=== PATIENT | male | born 1960 | race Caucasian/White ===

== ENCOUNTER 2024-06-27 07:28 | Day surgery (SDC) | payer OTHER ==
[2024-06-27] MEDS: Polymyxin B/Trimethoprim 10 ML Bottle EYELF SCH (07:39)
[2024-06-27] MEDS: Brimonidine 0.2% Ophth Soln 5 ML Bottle EYELF SCH (07:42)
[2024-06-27] MEDS: Phenylephrine 2.5% Ophth Soln 2 ML Bot EYELF SCH (07:47)
[2024-06-27] MEDS: Lidocaine 1% PF 2 ML SDV INJECT SCH (07:49)
[2024-06-27] MEDS: Tetracaine HCl/PF 0.5% 4 ML Bottle EYEBOTH SCH (07:49)
[2024-06-27] MEDS: Pilocarpine 4% Ophth Soln 15 ML Bot EYELF SCH (07:49)
[2024-06-27] MEDS: Cefuroxime 10 MG/ML SYRINGE EYELF SCH (07:49)
[2024-06-27] MEDS: Tropicamide 1% Ophth Soln 3 ML Bottle EYELF SCH (07:51)
== END 2024-06-27 09:56 | disposition home or self-care (01) ==
LOC: JD.SDS 07:28
PROVIDERS: ATTEND Ophthalmology
DX: H25.813 Combined forms of age-related cataract, bilateral (principal); H35.372 Puckering of macula, left eye; H40.053 Ocular hypertension, bilateral; H40.043 Steroid responder, bilateral; H57.813 Brow ptosis, bilateral; H02.831 Dermatochalasis of right upper eyelid; H02.834 Dermatochalasis of left upper eyelid; H31.092 Other chorioretinal scars, left eye; I10 Essential (primary) hypertension; Z79.899 Other long term (current) drug therapy
CPT/HCPCS: 66984; A9270; J0697; J3490